=== PATIENT | male | born 1990 | race Caucasian/White ===

== ENCOUNTER 2023-11-08 13:58 | Emergency (ER) | payer OTHER | END 2023-11-08 20:14 | disposition admitted as inpatient to this hospital (09) | LOC: ERS 13:58 | DX: S68.110A Complete traumatic metacarpophalangeal amputation of right index finger, initial encounter (principal); F17.220 Nicotine dependence, chewing tobacco, uncomplicated; W23.1XXA Caught, crushed, jammed, or pinched between stationary objects, initial encounter; Y93.H3 Activity, building and construction; Y99.0 Civilian activity done for income or pay | CPT/HCPCS: 90471; 90715; 96365; 96372; 96375; G0390; J0665; J1580; J1885; J2250; J2405; J2704; J3010; J3370; J3490 ==